=== PATIENT | female | born 1965 | race Asian ===

== ENCOUNTER 2017-12-18 09:09 | Day surgery (SDC) | payer OTHER ==
[2017-12-15 11:52] VITALS: BMI 20.1
[2017-12-18 09:29] VITALS: TEMP 98.1
[2017-12-18] MEDS ORDERED: PROPOFOL 20 ML ONE ×2 (09:49)
[2017-12-18 11:58] VITALS: BP 94/60; PULSE 61
--- NOTE | 2017-12-19 17:00 | PATH ---
Surgical Pathology Report Patient Name: GUILLERMINA CONLEY [facility]. Rec. #: [id number] /Age/Gender: 1965 (Age: 52) / F Account: [id number] Location: [facility] Taken: 12/18/2017 Received: 12/18/2017 Reported: 12/19/2017 Physicians: Rickey Rose M.D. Specimen(s) Received A: BX DUODENUM B: BX ANTRUM Clinical History GERD, rule out colon cancer Postoperative diagnosis: Rule out celiac disease, mild gastritis Final Diagnosis A. DUODENUM, BIOPSY: DUODENAL MUCOSA WITH NO DIAGNOSTIC ABNORMALITIES. NO HISTOLOGIC EVIDENCE OF CELIAC DISEASE. B. ANTRUM, BIOPSY: GASTRIC MUCOSA WITH MILD CHRONIC GASTRITIS. IMMUNOSTAIN IS NEGATIVE FOR H. PYLORI ORGANISMS. Electronically Signed Sami Olguin M.D. Gross Description A. Received in formalin, labeled "duodenum" are 2 nguyen, irregular portions of soft tissue averaging 0.4 cm. in greatest dimension. The specimens are submitted in toto in one cassette. B. Received in formalin, labeled "antrum" are 2 nguyen, irregular portions of soft tissue averaging 0.3 cm. in greatest dimension. The specimens are submitted in toto in one cassette. 12/18/2017 saudi12/18/2017
== END 2017-12-18 11:55 | disposition home or self-care (01) ==
LOC: FASU-ENDO 09:09
PROVIDERS: ATTEND Internal Medicine Gastroenterology
PROC: 0DB68ZX Excision of Stomach, Via Natural or Artificial Opening Endoscopic, Diagnostic (ICD-10-PCS; 2017-12-18)
PROC: 0DJD8ZZ Inspection of Lower Intestinal Tract, Via Natural or Artificial Opening Endoscopic (ICD-10-PCS; principal; 2017-12-18 10:47)
PROC: 0DB98ZX Excision of Duodenum, Via Natural or Artificial Opening Endoscopic, Diagnostic (ICD-10-PCS; 2017-12-18 10:47)
DX: Z12.11 Encounter for screening for malignant neoplasm of colon (principal); K29.50 Unspecified chronic gastritis without bleeding
CPT/HCPCS: 82962; 84703; 88305-TC; 88342-TC